=== PATIENT | female | born 1955 | race Two or more races ===

== ENCOUNTER 2020-01-18 00:38 | Emergency (ER) | payer SELFPAY ==
[~2020-01-18] VITALS: Ht 162.6 cm; Wt 65.8 kg
[~2020-01-18 00:38] MED LIST: IBUPROFEN600 M1 ORAL
--- NOTE | 2020-01-18 00:40 | Emergency Room Report ---
History of Present Illness General Source: Patient Present Illness HPI Patient is a 64-year-old alcoholic female PMHx cirrhosis and osteoarthritis brought in by ambulance with complaint of atraumatic bilateral knee pain x10 years. Patient denies recent fall or aggravating factors. She was seen in the ED and discharged earlier for another complaint. Patient denies chest pain, abdominal pain, headache, neck pain, vision changes, weakness, shortness of breath, nausea, vomiting, diarrhea, melena, hematochezia , hematuria or dysuria She has not tried any medication to help her with her pain The patient's symptoms were gradual onset, severity was moderate, duration since 10 years. Quality: Aching Past medical history: Osteoarthritis, cirrhosis Past surgical history: Denies Smoking: Denies Alcohol use: Occasional Drug use: Denies Review of systems: CONST: No fevers or chills, No night sweats PULMONARY: No productive cough, No shortness of breath CARDIAC: No chest pain, No palpitations GI: No vomiting, No diarrhea , No melena_or_BRBPR : No dysuria, No hematuria, No discharge NEURO: No new_focal_weakness_or_numbness, No confusion, No vision changes 14 point Review of Systems is otherwise negative except per HPI Physical Exam: GENERAL: Awake_alert_ nontoxic, no acute distress Spo2 100% on RA -normal EYES: Extraocular muscles are intact. Conjunctivae clear. Lids without swelling ENT: External nose and ear normal_in_appearance. Oropharynx clear. Head_ atraumatic, Moist_oral_mucosa NECK: No JVD. No meningismus. No thyromegaly. Supple. Trachea midline RESP: Normal respiratory effort. Symmetric rise. No stridor. Clear_to_ auscultation_No_rales_No_wheezes CARDIAC: Regular rate and regular rhytm. No_significant pedal edema. ABDOMEN: Soft. Nondistended. Nontender_No_rebound_or_guarding. MSK: Normal muscle tone, without rigidity. Extremities without asymmetric deformity or swelling. No deformities of bilateral knees. BILATERAL LE exam: No swelling / effusion appreciated, at knee Negative ballottment sign, anterior/posterior drawer sign, and mcmurrays sign bilaterally No significant pain with passive range of motion Lateral malleolus: no tenderness / swelling / ecchymoses Medial malleolus: no tenderness / swelling / ecchymoses Dorsalis pedis pulse: 2+ Capillary refill: <3 seconds in all toes All toes: full range of motion without any tenderness / swelling / deformity / evidence of infection Base of the fifth metatarsal: no tenderness / swelling / ecchymoses Navicular: no tenderness / swelling / ecchymoses Calcaneus: no tenderness / swelling / ecchymoses Arch of the foot: no tenderness / swelling / ecchymoses Midfoot: no tenderness / swelling / ecchymoses Strength of dorsal / plantar flexion: normal 5/5 SKIN: Warm and dry. No visible cyanosis or pallor NEUROLOGIC: Alert, oriented x3. Motor_and_sensation_grossly_intact. No truncal ataxia. Gait_normal Psych: Normal mood and affect, normal judgment and insight - COORDINATION OF CARE Case was discussed with: Patient Medical Decision Making/Plan: Differential diagnosis includes musculoskeletal pain, fracture, dislocation, compartment syndrome, arterial occlusion, nerve damage, among others. Distally the patient has capillary refill <2 seconds and strong pulses. There is no pallor or pain out of proportion to exam. There is no significant swelling, deformity, or report of significant dislocation that subsequently reduced. No evidence of arterial occlusion or injury. The associated joints have full range of motion without any significant pain or restriction in mobility. No evidence at this time of major ligamentous disruption. Xrays of the bilateral knees show severe OA and otherwise within normal limits, compartments are soft, the patient is able to bear weight and has no neurologic deficits. No evidence of fracture, dislocation, foreign body, significant nerve damage, compartment syndrome at this time. However, the patient was informed that occult fractures or foreign bodies are not always apparent on their first visit and understand to follow up with their regular doctor for a reevaluation within the next 2-3 days, to ensure their symptoms completely resolve. I did review ED visit from earlier today. CT chest showed cirrhosis and GB distention. Pt has non tender abdomen. Is able to tolerate PO without difficult. Afebrile. Doubt acute cholecystitis. Pt was counseled to stop drinking alcohol, which she states she will try. She has unopened white claw beverages in her bag. ED intervention included Tylenol with full relief of symptoms. Patient was given resources for homeless prison. On exam, She is fully ambulatory and clinically sober. Pertinent results reviewed with the patient. I educated the patient on the current treatment plan including the risks, benefits, and alternatives. I also discussed the extent and limitations of the current evaluation. The patient expressed understanding and agreement with plan. I recommended PMD follow-up within 1-2 days. Also advised that the patient return to the Emergency Department as soon as possible if they experience any new, persistent, or worsening symptoms. Allergies: Coded Allergies: No Known Allergies (Unverified , 01/17/20) Physical Exam Sp02 EP Interpretation: reviewed, normal Medical Decision Making Diagnostic Impression: Primary Impression: Knee pain, bilateral Additional Impressions: Osteoarthritis Cirrhosis Alcoholism Chest X-Ray Diagnostic Results Chest X-Ray Diagnostic Results : PA Scribe Text Left knee X-ray: Views: 2 view(s) No fracture. Normal alignment. Soft tissues normal. DJD/OA Indication: Pain Impression: OA The X-ray(s) were independently viewed and interpreted contemporaneously - Electronically signed by Nicole lyn DO Right knee X-ray: Views: 2 view(s) No fracture. Normal alignment. Soft tissues normal. DJD/OA Indication: Pain Impression: OA The X-ray(s) were independently viewed and interpreted contemporaneously - Electronically signed by Nicole lyn DO Reevaluation Time: Status: improved Disposition: HOME, SELF-CARE Admit Decision Time: Condition: Stable Scripts Methocarbamol* (ROBAXIN-500*) 500 Mg Tablet 500 MG ORAL TID PRN for For Pain, #15 TAB 0 Refills Prov: Nicole Vuong D.O. 01/18/20 Naproxen* (NAPROXEN*) 500 Mg Tablet.dr 500 MG ORAL TWICE A DAY for 14 Days, #28 TAB Prov: Nicole Vuong D.O. 01/18/20 Patient Instructions: Arthritis, [id number]-Ptuf, Knee Pain, [id number] Additional Instructions: Instructions for patient/shoulder boner: Follow up with your physician in 1-[address] heavy machinery and take robaxin as it is sedating. Follow-up with your doctor sooner if your condition requires a more timely clinical reevaluation. Return to the emergency department immediately if you feel that your condition is worsening or if you have any new or concerning symptoms. Review your discharge instructions and take any prescriptions given as instructed. Nicole Vuong D.O. Jan 18, 2020 00:40
[2020-01-18] MEDS ORDERED: Acetaminophen 500mg (ES) tab ORAL ONE (00:45)
[2020-01-18 00:55] VITALS: BP 137/58
[2020-01-18] MEDS ORDERED: NAPROXEN500 M1 ORAL (01:19)
[2020-01-18] MEDS ORDERED: ROBAXIN-500MG ORAL (01:19)
--- NOTE | 2020-01-18 02:08 | Diagnostic Imaging Report ---
EXAM: XR Left Knee, 3 Views CLINICAL HISTORY: PAIN TECHNIQUE: Three views of the left knee. COMPARISON: No relevant prior studies available. FINDINGS: Bones/joints: Small knee joint effusion. Tricompartment osteoarthritis worst in the medial compartment, where findings are moderate-advanced. Osteopenia. No acute fracture. No dislocation. Soft tissues: Unremarkable. IMPRESSION: 1. Tricompartment osteoarthritis worst in the medial compartment, where findings are moderate-advanced. 2. Small knee joint effusion.
--- NOTE | 2020-01-18 02:09 | Diagnostic Imaging Report ---
EXAM: XR Right Knee, 3 Views CLINICAL HISTORY: PAIN TECHNIQUE: Three views of the right knee. COMPARISON: No relevant prior studies available. FINDINGS: Bones/joints: Possible tiny knee joint effusion. Tricompartment osteoarthritis worst in the medial compartment, where findings are advanced. Osteopenia. No acute fracture. No dislocation. Soft tissues: Unremarkable. IMPRESSION: 1. Possible tiny knee joint effusion. 2. Tricompartment osteoarthritis worst in the medial compartment, where findings are advanced.
[2020-01-18 02:15] VITALS: BP 131/66
== END 2020-01-18 02:15 | disposition home or self-care (01) ==
LOC: EDUNIT# 00:38 → EDBD 00:38 → EMR 00:59
DX: M25.562 Pain in left knee (principal); M25.561 Pain in right knee; K74.60 Unspecified cirrhosis of liver; F10.20 Alcohol dependence, uncomplicated; M17.0 Bilateral primary osteoarthritis of knee
CPT/HCPCS: 99284